=== PATIENT | female | born 1970 | race Two or more races ===

== ENCOUNTER 2018-10-09 18:45 | Emergency (ER) | payer MEDICAID, OTHER ==
[~2018-10-09] VITALS: Ht 162.6 cm; Wt 90.7 kg
[2018-10-09 18:50] VITALS: BP 116/71
[2018-10-09] MEDS ORDERED: SODIUM CHLORIDE 0.9% 1,000 ML IV ONE (19:45)
[2018-10-09] MEDS ORDERED: ACETAMINOPHEN 500 MG TAB PO ONE (19:45)
== END 2018-10-09 21:16 | disposition home or self-care (01) ==
LOC: ER 18:45
DX: J01.00 Acute maxillary sinusitis, unspecified (principal); H10.33 Unspecified acute conjunctivitis, bilateral; Z90.49 Acquired absence of other specified parts of digestive tract; Z90.710 Acquired absence of both cervix and uterus